=== PATIENT | female | born 1990 | race Caucasian/White ===

== ENCOUNTER 2016-11-04 07:48 | Emergency (ER) | payer BC ==
[~2016-11-04] VITALS: Ht 162.6 cm; Wt 109.0 kg
[2016-11-04 08:30] LABS: ADD MIUA? YES; BILIRUBIN NEGATIVE; BLOOD NEGATIVE; COLOR YELLOW ((YELLOW)); GLUCOSE (STRIP) NEGATIVE; KETONES NEGATIVE; LEUKOCYTES NEGATIVE; NITRITE NEGATIVE; PROTEIN (STRIP) NEGATIVE; SPECIFIC GRAVITY 1.012 (1.000-1.030); UROBILINOGEN 0.2 MG/DL (0.2-1.0)
[2016-11-04 08:38] LABS: BACTERIA 3+ /HPF; EPITHELIAL CELLS RARE /HPF; MUCUS TRACE /LPF; RED BLOOD CELLS 0-5 /HPF (0-5); UCUL ADDED? NO; WHITE BLOOD CELLS 0-5 /HPF (0-5)
[2016-11-04 08:39] LABS: HEMATOCRIT 41.9 % (36.0-46.0); MCH 28.5 PG (29.0-34.0); MCHC 32.9 G/DL (30.0-36.0); MCV 86.4 FL (83-99); MEAN PLAT.VOLUME 8.8 uM^3 (9.5-12.4); PLATELET COUNT 322 K/uL (156-360); RBC DIS.WIDTH-CV 13.9 % (11.8-14.6); RBC DIS.WIDTH-SD 43.9 % (39-53); RED BLOOD COUNT 4.85 M/uL (3.80-5.20); WHITE BLOOD COUNT 10.9 K/uL (4.1-10.2)
[2016-11-04 09:12] LABS: ALKALINE PHOSPHATASE 67 IU/L (3-129); ANION GAP 5 MEQ/L (2-14); CHLORIDE 106 MEQ/L (99-109); GFR ESTIMATE (CALCULATED) > 59 mL/min/; GLUCOSE 98 mg/dL (70-99); POTASSIUM 4.3 MEQ/L (3.7-5.4); SAMPLE HEMOLYSIS CHECK 0; SAMPLE ICTERIC CHECK 0; SAMPLE LIPEMIA CHECK 0; SODIUM 137 MEQ/L (136-147); TOTAL BILIRUBIN 0.4 MG/DL (0.0-1.0); UREA NITROGEN (BUN) 10 mg/dL (9-23)
[2016-11-04 09:15] LABS: QUANTITATIVE HCG < 4.0 MIU/ML
[2016-11-04 09:43] LABS: LIPASE 13 U/L (1.0-51.0)
[2016-11-04] MEDS ORDERED: ZOFRAN ODT4 MG PO (10:01)
[2016-11-04] MEDS ORDERED: FIORICET,ESG1 TABLET PO (10:01)
[2016-11-04 10:07] VITALS: BP 114/75
== END 2016-11-04 10:35 | disposition home or self-care (01) ==
LOC: EME 07:48
DX: R51 Headache (principal); G43.909 Migraine, unspecified, not intractable, without status migrainosus; F17.200 Nicotine dependence, unspecified, uncomplicated; E28.2 Polycystic ovarian syndrome; Z91.14 Patient's other noncompliance with medication regimen
CPT/HCPCS: 80053; 81003; 83690; 84702; 85027; 93005; 99281; 99285; J2405; J3030; J7030